=== PATIENT | male | born 1985 | race Caucasian/White ===

== ENCOUNTER 2016-10-13 02:48 | Inpatient (IN) | payer BC, OTHER ==
[~2016-10-13] VITALS: Ht 182.9 cm; Wt 83.0 kg
[2016-10-13 02:51] VITALS: O2SAT 97
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
[2016-10-13 03:42] LABS: URINE APPEARANCE CLEAR (CLEAR); URINE BILIRUBIN NEG (NEG); URINE COLOR YELLOW; URINE NITRITE NEG (NEG); URINE PH 5.5 (4.5-7.5); UROBILINOGEN NEG (NEG)
[2016-10-13 03:47] LABS: HEMATOCRIT 44.1 % (42-52); MEAN CELL VOLUME 90.4 fL (80-100); MEAN CORPUSCULAR HEMOGLOBIN 31.8 pg (25-34); MEAN CORPUSCULAR HGB CONC 35.1 g/dl (32-36); MEAN PLATELET VOLUME 9.3 fL (7.4-10.4); PLATELET COUNT 234 K/uL (130-400); RED BLOOD COUNT 4.88 M/uL (4.7-6.1); WHITE BLOOD COUNT 8.46 K/uL (4.8-10.8)
[2016-10-13 03:47] LABS: MANUAL MICROSCOPIC REQUIRED? NO; REVIEW REQ? NO
[2016-10-13 03:54] LABS: ALT/SGPT 43 U/L (12-78); AST/SGOT 35 U/L (15-37); BLOOD UREA NITROGEN 14 mg/dl (7-18); BUN/CREATININE RATIO 9.8 (10-20); CALCIUM 8.5 mg/dl (8.5-10.1); CARBON DIOXIDE 27 mmol/L (21-32); CHLORIDE 102 mmol/L (98-107); GLUCOSE 82 mg/dl (70-99); POTASSIUM 4.1 mmol/L (3.5-5.1); SODIUM 139 mmol/L (136-145)
[2016-10-13 04:01] LABS: BENZODIAZEPINE, URINE NEG (NEG); COCAINE,URINE NEG (NEG); PHENCYCLIDINE, URINE NEG (NEG)
[2016-10-13 04:05] LABS: ALKALINE PHOSPHATASE 69 U/L (45-117)
[2016-10-13 04:39] LABS: ACETAMINOPHEN < 2 ug/ml (10-30)
[2016-10-13] MEDS ORDERED: LORAZEPAM 2 MG/ML 1 ML VIAL ONE (04:52)
[2016-10-13] MEDS ORDERED: HALOPERIDOL LACTATE 5 MG/ML 1 ML VIAL ONE (04:53)
[2016-10-13] MEDS ORDERED: NURSING VERBAL MED ORDER ONE ×3 (05:45→06:30)
[2016-10-13 06:02] VITALS: BP 148/87; TEMP 36.7
[2016-10-13 06:07] VITALS: BP 137/78; PULSE 72; TEMP 36.7; BMI 24.8
[2016-10-13] MEDS ORDERED: ALUMINUM/MAGNESIUM SUSP 30 ML UDC PO PRN (06:15)
[2016-10-13] MEDS ORDERED: BISMUTH SUBSALICYLATE PER ML OMNICELL CHARGE PO PRN (06:15)
[2016-10-13] MEDS ORDERED: MAGNESIUM HYDROXIDE SUSP 30 ML UDC PO PRN (06:15)
[2016-10-13] MEDS ORDERED: ACETAMINOPHEN 325 MG TAB PO PRN (06:15)
[2016-10-13] MEDS ORDERED: hydrOXYzine HCL 25 MG TAB PO PRN ×2 (06:15)
[2016-10-13] MEDS ORDERED: SODIUM CHLORIDE 0.65% NA SOLN 45 ML (OCEAN) PRN (06:15)
[2016-10-13] MEDS ORDERED: HALOPERIDOL LACTATE 5 MG/ML 1 ML VIAL IM PRN (09:00)
[2016-10-13] MEDS: NICOTINE 14 MG/24 HR TDSY TD SCH (09:00)
[2016-10-13] MEDS ORDERED: HALOPERIDOL 5 MG TAB PO PRN (09:00)
[2016-10-13] MEDS ORDERED: LORAZEPAM 1 MG TAB PO PRN (09:15)
[2016-10-13] MEDS ORDERED: LORAZEPAM 2 MG/ML 1 ML VIAL IM PRN (09:15)
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
[2016-10-13] MEDS: NICOTINE POLACRILEX 2 MG GUM MT PRN ×2 (10:53→19:51)
[2016-10-14 07:02] VITALS: BP_SYST 115; BP_SYST 126; BP_DIAS 76; BP_DIAS 87; PULSE 54; PULSE 80; TEMP 36.6
[2016-10-14 07:03] VITALS: Ht 182.9 cm; Wt 83.0 kg
[2016-10-14] MEDS: NICOTINE POLACRILEX 2 MG GUM MT PRN ×4 (08:30→21:28)
[2016-10-14] MEDS: NICOTINE 14 MG/24 HR TDSY TD SCH (08:31)
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
[2016-10-14 12:10] VITALS: BP 128/74; PULSE 99; TEMP 36
[2016-10-14] MEDS ORDERED: LORAZEPAM 1 MG TAB PO PRN (13:30)
[2016-10-14] MEDS: PANTOprazole SOD 40 MG TAB PO SCH (14:59)
[2016-10-14] MEDS: TRAZODONE HCL 100 MG TAB PO SCH (21:28)
[2016-10-15 06:53] VITALS: BP_SYST 104; BP_SYST 123; BP_DIAS 67; BP_DIAS 74; PULSE 66; PULSE 77; TEMP 36.6
[2016-10-15 07:58] LABS: CHOLESTEROL/HDL RATIO 2.5; THYROID STIMULATING HORMONE 1.98 uIu/ml (0.300-4.500)
[2016-10-15 08:31] VITALS: BP 101/66; PULSE 58; TEMP 36.6
[2016-10-15] MEDS: PANTOprazole SOD 40 MG TAB PO SCH (08:42)
[2016-10-15] MEDS: NICOTINE 14 MG/24 HR TDSY TD SCH (08:42)
[2016-10-15] MEDS: NICOTINE POLACRILEX 2 MG GUM MT PRN ×2 (08:44→18:51)
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
[2016-10-15 12:29] VITALS: BP 99/59; PULSE 54; TEMP 36.6
[2016-10-15] MEDS: TRAZODONE HCL 100 MG TAB PO SCH (22:00)
[2016-10-16 06:53] VITALS: BP_SYST 112; BP_SYST 114; BP_DIAS 72; PULSE 63; PULSE 84; TEMP 36.8
[2016-10-16] MEDS: NICOTINE 14 MG/24 HR TDSY TD SCH (08:45)
[2016-10-16] MEDS: PANTOprazole SOD 40 MG TAB PO SCH (08:45)
[2016-10-16] MEDS: NICOTINE POLACRILEX 2 MG GUM MT PRN ×3 (08:49→18:57)
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
[2016-10-17 07:04] VITALS: BP_SYST 100; BP_SYST 115; BP_DIAS 63; BP_DIAS 67; PULSE 53; PULSE 83; TEMP 36.7
[2016-10-17] MEDS: PANTOprazole SOD 40 MG TAB PO SCH (08:38)
[2016-10-17] MEDS: NICOTINE 14 MG/24 HR TDSY TD SCH (08:38)
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
== END 2016-10-17 13:20 | disposition home or self-care (01) | DRG 885 ==
LOC: C.EDB 02:50 → C.MHU 05:31
PROVIDERS: ADMIT Psychiatry & Neurology Psychiatry; ATTEND Psychiatry & Neurology Psychiatry
DX: F39 Unspecified mood [affective] disorder (principal); R45.851 Suicidal ideations; F17.210 Nicotine dependence, cigarettes, uncomplicated; F10.10 Alcohol abuse, uncomplicated

== ENCOUNTER → 2016-10-13 | Outpatient (CLI) | payer OTHER | END | disposition home or self-care (01) | LOC: C.LAB 02:54 | DX: Z02.83 Encounter for blood-alcohol and blood-drug test (principal) ==